=== PATIENT | male | born 1950 | race American Indian/Alaskan Native ===

== ENCOUNTER 2020-11-07 09:55 | Emergency (ER) | payer MEDICARE ==
[2020-11-07] MEDS ORDERED: ASPIRIN 325 MG TAB PO ONE (10:14)
--- NOTE | 2020-11-07 10:50 | XRay Report ---
CHEST 2 VIEWS INDICATION / CLINICAL INFORMATION: CP WITH SOB. COMPARISON: None available. FINDINGS: SUPPORT DEVICES: None. HEART / MEDIASTINUM: The heart size and pulmonary vasculature are normal. There is mild aortic tortuo sity without aneurysm. LUNGS / PLEURA: The lungs are mildly hyperinflated. No focal pulmonary or pleural abnormality. No pne umothorax. ADDITIONAL FINDINGS: There is mild thoracic spondylosis. IMPRESSION: Mild hyperinflation of the lungs is characteristic of emphysema or asthma. Signer Name: Colt Mcnally MD Signed: 11/07/2020 10:46 AM Workstation Name: [id number]
[2020-11-07 11:03] LABS: Basophils # (Auto) 0.1 K/mm3 (0.0-0.1); Basophils % (Auto) 0.8 % (0.0-1.8); Eosinophils # (Auto) 0.2 K/mm3 (0.0-0.4); Eosinophils % (Auto) 2.9 % (0.0-4.3); Hemoglobin 14.2 gm/dl (11.8-15.2); Lymphocytes # (Auto) 1.1 K/mm3 (1.2-5.4); Lymphocytes % (Auto) 16.7 % (13.4-35.0); Mean Corpuscular HGB Conc 33 % (32-34); Mean Corpuscular Volume 94 fl (84-94); Monocytes # (Auto) 0.5 K/mm3 (0.0-0.8); Monocytes % (Auto) 7.9 % (0.0-7.3); Red Blood Count 4.55 M/mm3 (3.65-5.03); Red Cell Distribution Width 14.1 % (13.2-15.2)
[2020-11-07 11:04] LABS: Platelet Count 216 K/mm3 (140-440)
[2020-11-07 11:09] LABS: Alanine Aminotransferase 8 units/L (7-56); Albumin 3.4 g/dL (3.9-5); BUN/Creatinine Ratio 12; Blood Urea Nitrogen 11 mg/dL (9-20); Calcium 8.7 mg/dL (8.4-10.2); Hemolysis Index 38
[2020-11-07] MEDS ORDERED: predniSONE 20 MG TAB PO ONE (11:22)
[2020-11-07] MEDS ORDERED: IPRATROPIUM/ALBUTEROL SULFATE 3 ML AMPUL.NEB IH ONE (11:23)
--- NOTE | 2020-11-07 11:36 | Emergency Department Report ---
HPI - General Chief Complaint: Dyspnea/Respdistress Time Seen by Provider: 11/07/20 11:16 - HPI HPI: This is a 70-year-old -[place] male who presents to the emergency department with a complaint of a 2-day history of head and chest congestion, mix ed dry and productive cough, sore throat, and the complaint of some generalized chest discomfort that he describes as a tightness. He denies any fever, lower extremity swelling, nausea, vomiting, diarrhea, back pain. Patient took some icdp-[id number]-[id number] cough/cold medication without any relief. He is a tobacco smoker but denies any illicit drug use. No recent travel or sick contacts at home. He is currently in between primary care physicians. He denies any family history of early cardiac disease or MD. No known aggravating or alleviating factors. ED Past Medical Hx - Past Medical History Previous Medical History?: No - Surgical History Past Surgical History?: No - Social History Smoking Status: Current Some Day Smoker Substance Use Type: Alcohol - Medications Home Medications: Home Medications Medication Instructions Recorded Confirmed Last Taken Type Albuterol Mdi (or & Nicu Only) 2 puff IH QID PRN #8.5 gram 11/07/20 Unknown Rx [ProAir HFA Inhaler] Benzonatate [Tessalon Perles] 100 mg PO Q8HR PRN #20 capsule 11/07/20 Unknown Rx ED Review of Systems ROS: Stated complaint: CHEST PAIN/LINDA Other details as noted in HPI Comment: All other systems reviewed and negative Constitutional: denies: chills, fever Eyes: denies: eye pain, vision change ENT: throat pain, congestion. denies: ear pain Respiratory: cough, shortness of breath Cardiovascular: chest pain (tightness). denies: edema Gastrointestinal: denies: abdominal pain, vomiting Genitourinary: denies: dysuria, discharge Musculoskeletal: denies: back pain, arthralgia Skin: denies: rash, lesions Neurological: denies: headache, weakness Physical Exam - Physical Exam Vital Signs: Vital Signs 11/07/20 10:07 Temperature 98.4 F Pulse Rate 88 Respiratory 24 Rate Blood Pressure 109/72 O2 Sat by Pulse 97 Oximetry Physical Exam: GENERAL: The patient is well-developed well-nourished. HENT: Normocephalic. Atraumatic. Patient has moist mucous membranes. EYES: Extraocular motions are intact. NECK: Supple. Trachea is midline. CHEST/LUNGS: Mild wheezing throughout the chest. No tachypnea or accessory muscle use. No cough or during examination. There is no respiratory distress noted. HEART/CARDIOVASCULAR: Regular. There is no tachycardia. There is no murmur. ABDOMEN: Abdomen is soft, nontender. Patient has normal bowel sounds. SKIN: Skin is warm and dry. NEURO: The patient is awake, alert, and oriented. The patient is cooperative. The patient has no focal neurologic deficits. Normal speech. MUSCULOSKELETAL: There is no tenderness or deformity. There is no limitation range of motion. ED Course Vital Signs 11/07/20 10:07 Temperature 98.4 F Pulse Rate 88 Respiratory 24 Rate Blood Pressure 109/72 O2 Sat by Pulse 97 Oximetry ED Medical Decision Making - Lab Data Result diagrams: 11/07/20 10:23 11/07/20 10:23 Lab Results 11/07/20 11/07/20 11/07/20 Range/Units 10:23 10:23 11:43 WBC 6.7 (4.5-11.0) K/mm3 RBC 4.55 (3.65-5.03) M/mm3 Hgb 14.2 (11.8-15.2) gm/dl Hct 43.0 (35.5-45.6) % MCV 94 (84-94) fl MCH 31 (28-32) pg MCHC 33 (32-34) % RDW 14.1 (13.2-15.2) % Plt Count 216 (140-440) K/mm3 Lymph % (Auto) 16.7 (13.4-35.0) % Morrow % (Auto) 7.9 H (0.0-7.3) % Eos % (Auto) 2.9 (0.0-4.3) % Baso % (Auto) 0.8 (0.0-1.8) % Lymph # (Auto) 1.1 L (1.2-5.4) K/mm3 Morrow # (Auto) 0.5 (0.0-0.8) K/mm3 Eos # (Auto) 0.2 (0.0-0.4) K/mm3 Baso # (Auto) 0.1 (0.0-0.1) K/mm3 Seg Neutrophils % 71.7 H (40.0-70.0) % Seg Neutrophils # 4.8 (1.8-7.7) K/mm3 D-Dimer (0-234) ng/mlDDU Sodium 135 L (137-145) mmol/L Potassium 4.0 (3.6-5.0) mmol/L Chloride 102.9 (98-107) mmol/L Carbon Dioxide 21 L (22-30) mmol/L Anion Gap 15 mmol/L BUN 11 (9-20) mg/dL Creatinine 0.9 (0.8-1.3) mg/dL Estimated GFR > 60 ml/min BUN/Creatinine Ratio 12 % Glucose 86 (75-100) mg/dL Calcium 8.7 (8.4-10.2) mg/dL Total Bilirubin 0.40 (0.1-1.2) mg/dL AST 16 (5-40) units/L ALT 8 (7-56) units/L Alkaline Phosphatase 64 (35-129) units/L Troponin T < 0.010 (0.00-0.029) ng/mL Total Protein 7.3 (6.3-8.2) g/dL Albumin 3.4 L (3.9-5) g/dL Albumin/Globulin Ratio 0.9 % 11/07/20 11/07/20 Range/Units 11:43 13:37 WBC (4.5-11.0) K/mm3 RBC (3.65-5.03) M/mm3 Hgb (11.8-15.2) gm/dl Hct (35.5-45.6) % MCV (84-94) fl MCH (28-32) pg MCHC (32-34) % RDW (13.2-15.2) % Plt Count (140-440) K/mm3 Lymph % (Auto) (13.4-35.0) % Morrow % (Auto) (0.0-7.3) % Eos % (Auto) (0.0-4.3) % Baso % (Auto) (0.0-1.8) % Lymph # (Auto) (1.2-5.4) K/mm3 Morrow # (Auto) (0.0-0.8) K/mm3 Eos # (Auto) (0.0-0.4) K/mm3 Baso # (Auto) (0.0-0.1) K/mm3 Seg Neutrophils % (40.0-70.0) % Seg Neutrophils # (1.8-7.7) K/mm3 D-Dimer 215.52 (0-234) ng/mlDDU Sodium (137-145) mmol/L Potassium (3.6-5.0) mmol/L Chloride (98-107) mmol/L Carbon Dioxide (22-30) mmol/L Anion Gap mmol/L BUN (9-20) mg/dL Creatinine (0.8-1.3) mg/dL Estimated GFR ml/min BUN/Creatinine Ratio % Glucose (75-100) mg/dL Calcium (8.4-10.2) mg/dL Total Bilirubin (0.1-1.2) mg/dL AST (5-40) units/L ALT (7-56) units/L Alkaline Phosphatase (35-129) units/L Troponin T < 0.010 (0.00-0.029) ng/mL Total Protein (6.3-8.2) g/dL Albumin (3.9-5) g/dL Albumin/Globulin Ratio % - EKG Data -: EKG Interpreted by Me EKG shows normal: sinus rhythm, axis, intervals, QRS complexes, ST-T waves Rate: normal - EKG Data When compared to previous EKG there are: previous EKG unavailable Interpretation: normal EKG - Radiology Data Radiology results: image reviewed interpreted by me: Chest x-ray shows some hyperinflation of the lungs and flattening of the diaphragms. No pneumonia, pleural effusions, pneumothorax. - Medical Decision Making This patient presents with a 2-day history of some head and chest congestion, a mixed dry and productive cough, slightly sore throat, and the complaint of some shortness of breath with chest tightness. Patient denies actual chest pain and the chest tightness appears respiratory in nature. On examination he has mild wheezing throughout the chest. There is no tachypnea or accessory muscle use. He does not appear in any respiratory or acute distress. Chest x-ray does not show any pneumonia, pleural effusions, pneumothorax or any other acute process. There is some hyperinflation of the lungs consistent with his smoking history. Patient possibly has some undiagnosed COPD/emphysema. EKG does not have any morphology consistent with ST elevation myocardial infarction or any dysrhythmia. Patient's labs have been unremarkable including CBC, metabolic panel, negative troponins x2 and a negative D-dimer. Vital signs have been reassuring throughout his ED course including being afebrile. Patient was given a breathing treatment and a dose of steroids. Upon reevaluation the wheezing has resolved and the patient says he is feeling improved. He appears safe for discharge home at this time. He says that he has good outpatient follow-up with primary care. Patient's contact information has been sent over to the [facility] [place], and someone from their office should be contacting him for close outpatient follow-up as per hospitalist S chest pain protocol. Just in case, he has also been given an outpatient referral for one of the slinger sequins. He will return to the emergency department with any worsening of his symptoms or with any acute distress. Critical Care Time: No Critical care attestation.: If time is entered above; I have spent that time in minutes in the direct care of this critically ill patient, excluding procedure time. ED Disposition Clinical Impression: Bronchospasm, Chest tightness Dyspnea Qualifiers: Dyspnea type: shortness of breath Qualified Code(s): R06.02 - Shortness of breath; R06.00 - Dyspnea, unspecified; R06.01 - Orthopnea Upper respiratory infection Qualifiers: URI type: unspecified URI Qualified Code(s): J06.9 - Acute upper respiratory infection, unspecified Disposition: DC- TO HOME OR SELFCARE Is pt being admited?: No Condition: Stable Instructions: Upper Respiratory Infection, Adult, Nonspecific Chest Pain, Adult, Bronchospasm, Adult, [id number] Additional Instructions: Please follow-up with your primary care physician in the next few days. Please stop smoking immediately. I am sending your contact information of her to the [facility] [place], and someone from their office should be contacting you shortly for close outpatient follow-up. Just in case, I am giving you a referral for one of their slinger sequins, Dr. Campa. Return to the emergency department with any worsening of your symptoms, new or concerning symptoms not addressed during this current emergency department visit, or with any acute distress. Prescriptions: Albuterol Mdi (or & Nicu Only) [ProAir HFA Inhaler] 2 puff IH QID PRN #8.5 gram PRN Reason: Shortness Of Breath Benzonatate [Tessalon Perles] 100 mg PO Q8HR PRN #20 capsule PRN Reason: Cough Referrals: SOMMER GARRETT MD [Primary Care Provider] - 2-3 Days CHARLIE CAMPA MD [Staff Physician] - 2-3 Days Time of Disposition: 15:03 HEART Score - HEART Score History: Slightly suspicious EKG: Normal Age: > 65 Risk factors: 1-2 risk factors Troponin: Troponin T < 0.010 ng/mL (0.00-0.029) 11/07/20 13:37 Troponin: < normal limit HEART Score: 3 - Critical Actions Critical Actions: 0-3 pts:0.9-1.7%risk of adverse cardiac event.Candidate for discharge
[2020-11-07 15:39] VITALS: BP 134/76
--- NOTE | 2020-11-08 11:27 | Electrocardiograph Report ---
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
== END 2020-11-07 15:39 | disposition home or self-care (01) ==
LOC: ED 09:55
DX: J06.9 Acute upper respiratory infection, unspecified (principal); J98.01 Acute bronchospasm; R07.89 Other chest pain; R06.00 Dyspnea, unspecified; F17.200 Nicotine dependence, unspecified, uncomplicated; Z79.899 Other long term (current) drug therapy
CPT/HCPCS: 36415; 71046; 80053; 84484; 85025; 85379; 93005; 94640; 99284; J7512; 94644